=== PATIENT | female | born 1995 | race Caucasian/White ===

== ENCOUNTER → 2020-08-20 08:56 | Outpatient (BNVA) | payer OTHER, SELFPAY | PROVIDERS: Family Provider Nurse Practitioner Family; PCP Nurse Practitioner Family; Visit Provider Registered Nurse | DX: Z11.59 Encounter for screening for other viral diseases (principal) | CPT/HCPCS: 87635 ==

== ENCOUNTER → 2021-10-18 14:42 | Outpatient (BNVA) | payer OTHER, SELFPAY | PROVIDERS: Family Provider Nurse Practitioner Family; PCP Nurse Practitioner Family; Visit Provider Registered Nurse | DX: Z34.90 Encounter for supervision of normal pregnancy, unspecified, unspecified trimester (principal) | CPT/HCPCS: 81025; 84702 ==

== ENCOUNTER → 2021-10-21 08:06 | Outpatient (BNVA) | payer OTHER, SELFPAY | PROVIDERS: Family Provider Nurse Practitioner Family; PCP Nurse Practitioner Family; Visit Provider Registered Nurse | DX: N91.2 Amenorrhea, unspecified (principal); Z34.90 Encounter for supervision of normal pregnancy, unspecified, unspecified trimester | CPT/HCPCS: 81025; 84702 ==

== ENCOUNTER → 2021-11-08 16:08 | Outpatient (BNVA) | payer OTHER, SELFPAY | PROVIDERS: Family Provider Nurse Practitioner Family; PCP Registered Nurse; Visit Provider Registered Nurse | DX: N92.6 Irregular menstruation, unspecified (principal) | CPT/HCPCS: 84702 ==

== ENCOUNTER → 2021-11-11 08:47 | Outpatient (BNVA) | payer OTHER, SELFPAY | PROVIDERS: Family Provider Nurse Practitioner Family; PCP Registered Nurse; Visit Provider Registered Nurse | DX: Z34.90 Encounter for supervision of normal pregnancy, unspecified, unspecified trimester (principal) | CPT/HCPCS: 84702 ==

== ENCOUNTER → 2021-11-22 09:01 | Outpatient (BNVA) | payer OTHER, BC, SELFPAY | PROVIDERS: Family Provider Nurse Practitioner Family; PCP Registered Nurse; Visit Provider Registered Nurse | DX: Z11.52 Encounter for screening for COVID-19 (principal); J02.0 Streptococcal pharyngitis; R50.9 Fever, unspecified | CPT/HCPCS: 81025; 87635; 87880 ==

== ENCOUNTER → 2021-12-02 10:46 | Outpatient (BNVA) | payer OTHER, BC, SELFPAY | PROVIDERS: Family Provider Nurse Practitioner Family; PCP Registered Nurse; Visit Provider Obstetrics & Gynecology | DX: N92.6 Irregular menstruation, unspecified (principal) | CPT/HCPCS: 84702 ==

== ENCOUNTER → 2021-12-05 09:54 | Outpatient (BNVA) | payer OTHER, BC, SELFPAY | PROVIDERS: Family Provider Nurse Practitioner Family; PCP Registered Nurse; Visit Provider Obstetrics & Gynecology | DX: N92.6 Irregular menstruation, unspecified (principal) | CPT/HCPCS: 84702 ==

== ENCOUNTER → 2021-12-13 15:20 | Outpatient (BNVA) | payer OTHER, BC, SELFPAY | PROVIDERS: Family Provider Nurse Practitioner Family; PCP Registered Nurse; Visit Provider Obstetrics & Gynecology | DX: O20.0 Threatened abortion (principal) | CPT/HCPCS: 84702; 85025; 86850; 86900 ==

== ENCOUNTER → 2021-12-20 14:09 | Outpatient (BNVA) | payer OTHER, BC, SELFPAY | PROVIDERS: Family Provider Nurse Practitioner Family; PCP Registered Nurse; Visit Provider Obstetrics & Gynecology | DX: O03.9 Complete or unspecified spontaneous abortion without complication (principal) | CPT/HCPCS: 84702 ==

== ENCOUNTER → 2022-01-09 09:38 | Outpatient (BNVA) | payer OTHER, BC, SELFPAY | PROVIDERS: Family Provider Nurse Practitioner Family; PCP Registered Nurse; Visit Provider Obstetrics & Gynecology | DX: Z12.4 Encounter for screening for malignant neoplasm of cervix (principal); O02.0 Blighted ovum and nonhydatidiform mole; F32.A Depression, unspecified | CPT/HCPCS: 88175 ==

== ENCOUNTER → 2022-03-06 16:01 | Outpatient (BNVA) | payer OTHER, BC, SELFPAY | PROVIDERS: Family Provider Nurse Practitioner Family; PCP Registered Nurse; Visit Provider Registered Nurse | DX: N92.6 Irregular menstruation, unspecified (principal) | CPT/HCPCS: 84144; 84702 ==

== ENCOUNTER → 2022-03-09 10:02 | Outpatient (BNVA) | payer OTHER, BC, SELFPAY | PROVIDERS: Family Provider Nurse Practitioner Family; PCP Registered Nurse; Visit Provider Registered Nurse | DX: Z34.90 Encounter for supervision of normal pregnancy, unspecified, unspecified trimester (principal) | CPT/HCPCS: 84144; 84702 ==

== ENCOUNTER → 2022-03-15 15:26 | Outpatient (BNVA) | payer OTHER, BC, MEDICAID, SELFPAY | PROVIDERS: Family Provider Nurse Practitioner Family; PCP Registered Nurse; Visit Provider Obstetrics & Gynecology | DX: Z34.90 Encounter for supervision of normal pregnancy, unspecified, unspecified trimester (principal) | CPT/HCPCS: 84702 ==

== ENCOUNTER → 2022-04-21 09:14 | Outpatient (BNVA) | payer OTHER, BC, MEDICAID, SELFPAY | PROVIDERS: Family Provider Nurse Practitioner Family; PCP Registered Nurse; Visit Provider Obstetrics & Gynecology | DX: Z34.90 Encounter for supervision of normal pregnancy, unspecified, unspecified trimester (principal) | CPT/HCPCS: 80307; 84315; 84443; 85025; 86592; 86762; 86803; 86850; 86900; 87086; 87340; 87806 ==

== ENCOUNTER 2022-04-24 08:30 | Outpatient (CLI) | payer OTHER, BC, MEDICAID, SELFPAY ==
--- NOTE | 2022-04-24 08:34 | US_ITS ---
WS: [id number] EARLY OBSTETRICAL ULTRASOUND (<14 WEEKS). HISTORY: DATING COMPARISON: None available. Single intrauterine gestational sac is identified. Cardiac activity at 157 BPM. [place]-rump length adonay sures 4.9 cm which corresponds to a gestation of 11w5d. Normal-appearing yolk sac and amnion demonstr ated. No subchorionic hemorrhage. No free fluid. Neither ovary is identified. No adnexal masses. US/US OB <=14 wk fetus w transvag IMPRESSION: 1. Single intrauterine gestation of 11 weeks 5 days with an EDC of 11/08/2022. 2. Normal cardiac activity.
== END 2022-04-24 08:31 | disposition home or self-care (01) ==
LOC: RAD 08:31
PROVIDERS: PCP Registered Nurse; Visit Provider Obstetrics & Gynecology
DX: Z36.87 Encounter for antenatal screening for uncertain dates (principal)
CPT/HCPCS: 76801; 76817

== ENCOUNTER → 2022-05-05 15:05 | Outpatient (BNVA) | payer OTHER, BC, MEDICAID, SELFPAY | PROVIDERS: PCP Registered Nurse; Visit Provider Obstetrics & Gynecology | DX: Z34.90 Encounter for supervision of normal pregnancy, unspecified, unspecified trimester (principal) | CPT/HCPCS: 84315; 87491; 87591; 87661 ==

== ENCOUNTER → 2022-05-29 14:41 | Outpatient (BNVA) | payer OTHER, BC, MEDICAID, SELFPAY | PROVIDERS: PCP Registered Nurse; Visit Provider Obstetrics & Gynecology | DX: Z34.90 Encounter for supervision of normal pregnancy, unspecified, unspecified trimester (principal) | CPT/HCPCS: 82950; 84315 ==

== ENCOUNTER → 2022-06-01 08:08 | Outpatient (BNVA) | payer OTHER, BC, MEDICAID, SELFPAY | PROVIDERS: PCP Registered Nurse; Visit Provider Obstetrics & Gynecology | DX: Z34.90 Encounter for supervision of normal pregnancy, unspecified, unspecified trimester (principal) | CPT/HCPCS: 82951; 82952 ==

== ENCOUNTER → 2022-06-29 09:41 | Outpatient (BNVA) | payer OTHER, BC, MEDICAID, SELFPAY | PROVIDERS: PCP Registered Nurse; Visit Provider Obstetrics & Gynecology | DX: Z34.90 Encounter for supervision of normal pregnancy, unspecified, unspecified trimester (principal) | CPT/HCPCS: 84315; 87086 ==

== ENCOUNTER → 2022-08-21 09:23 | Outpatient (BNVA) | payer OTHER, BC, MEDICAID, SELFPAY | PROVIDERS: PCP Registered Nurse; Visit Provider Obstetrics & Gynecology | DX: Z34.90 Encounter for supervision of normal pregnancy, unspecified, unspecified trimester (principal) | CPT/HCPCS: 82951; 82952; 84315; 85025 ==

== ENCOUNTER → 2022-09-04 10:30 | Outpatient (BNVA) | payer OTHER, BC, MEDICAID, SELFPAY | PROVIDERS: PCP Registered Nurse; Visit Provider Obstetrics & Gynecology | DX: Z34.90 Encounter for supervision of normal pregnancy, unspecified, unspecified trimester (principal); Z3A.00 Weeks of gestation of pregnancy not specified | CPT/HCPCS: 84315; 87086 ==

== ENCOUNTER 2022-09-09 15:10 | Outpatient (CLI) | payer OTHER, BC, MEDICAID, SELFPAY ==
[2022-09-09 15:10] VITALS: BMI 50.1
[2022-09-09 15:30] VITALS: BP 142/82; PULSE 97
[2022-09-09 15:42] VITALS: TEMP 36.9
[2022-09-09 15:45] VITALS: BP 134/73; PULSE 88
[2022-09-09 16:00] VITALS: BP 128/73; PULSE 86
[2022-09-09 16:10] LABS: Actim Prom Negative
[2022-09-09 16:15] VITALS: BP 132/77; PULSE 88
[2022-09-09 16:49] VITALS: BP 132/77; PULSE 88; RESP 16
== END 2022-09-09 16:50 | disposition home or self-care (01) ==
LOC: OPOB 15:13 → OBGYN 15:13
PROVIDERS: PCP Registered Nurse; Visit Provider Obstetrics & Gynecology
DX: O26.899 Other specified pregnancy related conditions, unspecified trimester (principal); Z3A.00 Weeks of gestation of pregnancy not specified; N89.8 Other specified noninflammatory disorders of vagina
CPT/HCPCS: 59025; 83986; 84112; 99211

== ENCOUNTER 2022-09-29 10:17 | Outpatient (CLI) | payer OTHER, BC, MEDICAID, SELFPAY ==
[2022-09-29 10:32] VITALS: BP 122/73; PULSE 90
[2022-09-29 10:42] VITALS: BMI 50.8
[2022-09-29 10:47] VITALS: TEMP 36.6
[2022-09-29 10:55] VITALS: BP 125/89; PULSE 86
[2022-09-29 11:10] VITALS: BP 129/90; PULSE 87
== END 2022-09-29 11:20 | disposition home or self-care (01) ==
LOC: OPOB 10:25 → OBGYN 10:26
PROVIDERS: PCP Registered Nurse; Visit Provider Obstetrics & Gynecology
DX: O36.8190 Decreased fetal movements, unspecified trimester, not applicable or unspecified (principal); Z3A.00 Weeks of gestation of pregnancy not specified
CPT/HCPCS: 59025; 99211

== ENCOUNTER → 2022-10-02 08:15 | Outpatient (BNVA) | payer OTHER, BC, MEDICAID, SELFPAY | PROVIDERS: PCP Registered Nurse; Visit Provider Obstetrics & Gynecology | DX: Z34.90 Encounter for supervision of normal pregnancy, unspecified, unspecified trimester (principal); Z3A.00 Weeks of gestation of pregnancy not specified | CPT/HCPCS: 84315; 85025; 87086 ==

== ENCOUNTER 2022-10-08 19:20 | Outpatient (CLI) | payer OTHER, BC, MEDICAID, SELFPAY ==
[2022-10-08] VITALS (19 sets, daily range): BP systolic 136–172; BP diastolic 84–98; PULSE 70–83; RESP 16; TEMP 36.1–36.3; BMI 51.5
[2022-10-08 20:19] LABS: Glucose Point of Care 80 mg/dL (70-110)
[2022-10-08 21:11] LABS: Basophils % 0.3 %; Eosinophils # 0.6 10^3/uL (0.0-0.8); Eosinophils % 4.3 %; Hematocrit 33.6 % (37.0-47.0); Hemoglobin 10.8 g/dL (11.5-15.3); Lymphocytes # 2.4 10^3/uL (0.8-4.8); Lymphocytes % 16.2 %; Mean Corpuscular HGB Conc 32.1 g/dL (30.0-36.0); Mean Corpuscular Hemoglobin 27.2 pg (28.0-34.0); Mean Corpuscular Volume 84.6 fl (81-99); Mean Platelet Volume 11.8 fL (7.4-10.4); Monocytes # 1.2 10^3/uL (0.2-0.9); Neutrophils # 10.44 10^3/uL (1.8-7.7); Neutrophils % 70.8 %; Nucleated Red Blood Cells % 0 %; Platelet Count 293 10^3/cmm (130-400); Red Blood Count 3.97 10^6/uL (4.1-5.3); Red Cell Distribution Width 14.6 % (12.1-15.1); White Blood Count 14.8 10^3/uL (4.0-10.0)
[2022-10-08 21:29] LABS: Alanine Aminotransferase 7 U/L (0-33); Albumin Level 2.9 g/dL (3.5-5.2); Alkaline Phosphatase 168 U/L (35-105); Anion Gap 13.1 (5-19); Aspartate Amino Transferase 7 U/L (0-32); Blood Urea Nitrogen 9 mg/dL (6-20); Carbon Dioxide 24 mmol/L (22-29); Chloride 103 mmol/L (98-107); Globulin 3.3 g/dL (1.3-4.6); Glomerular Filtration Rate 119.9 mL/min (90-130); Glucose 85 mg/dL (65-115); Osmolality Calculated 280 mOsm/kg (285-295); Potassium 4.1 mmol/L (3.5-5.1); Sodium 136 mmol/L (136-145); Total Bilirubin 0.2 mg/dL (0.15-1.2); Total Protein 6.2 g/dL (6.6-8.7); Uric Acid 5.1 mg/dL (2.4-5.7)
[2022-10-08 21:31] LABS: Urine Creatinine 260 mg/dL (28-217)
[2022-10-08 21:32] LABS: Add Urine Microscopic? YES; Bilirubin Urine Neg (Negative); Blood Urine Neg (Negative); Glucose Urine UA Norm (Normal); Ketones Urine Negative (Negative); Leukocyte Esterase Urine Negative (Negative); Nitrate Urine Negative (Negative); Protein Urine 1+ (Negative); Urine Appearance Clear (CLEAR); Urine Color Yellow (Yellow); Urobilinogen Urine Neg (Negative); pH Urine 6 (5-7)
[2022-10-08 21:34] LABS: Mucus Urine 3+ /hpf
[2022-10-08 21:35] LABS: Add Urine Culture? Yes; Bacteria Urine 1+ /hpf
[2022-10-08 21:54] LABS: UPRO/UCREAT Ratio 0.33 mg/mg CR; Urine Protein Random 87 mg/dL
--- NOTE | 2022-10-08 23:14 | PM.OBTRLD ---
OB L&D Triage Visit Information: Date of evaluation: 10/08/22 Comments/Additional reason(s) for visit: October 08, 2022, 2305 L&D? NOTE 27 y.o. SA1 EDC? November 12, 2022 35 w 0 d Presents to L&D c/o having elevated BPs at home ? Patient has been self-monitoring BPs due to swelling during this Had headache yesterday but none today No abdominal pain, blurry vision + active movements Exam:?comfortable ?BPs?? 153 / 92, ?153 / 88,? 166 / 90,? 148 / 97,? 137/88,? 136 / 84 ?Weight?? 264? lbs ?Abd:? soft, nontender ?Ext:? trace edema External monitor:??? no UCs ? heart tracing good variability,? + accelerations Hgb?10.8 Platelets? 293? K AST, ALT? normal Alk Phos? 168 Urine protein? 1+ A/P: 35 w 0 d Fetus reassuring Mildly elevated BPs Plan start 24-h urine collection for protein Plan discharge home Call/return if headache, blurry vision, worsening swelling Patient already has appointment to return tomorrow to OB office Evaluation: monitor accelerations: Present 15x15 Laboratory results: Laboratory Tests 10/08/22 10/08/22 10/08/22 20:15 21:00 21:00 WBC 14.8 H RBC 3.97 L Hgb 10.8 L Hct 33.6 L MCV 84.6 MCH 27.2 L MCHC 32.1 RDW 14.6 Plt Count 293 MPV 11.8 H Neut % (Auto) 70.8 Lymph % (Auto) 16.2 [place] % (Auto) 8.0 Eos % (Auto) 4.3 Baso % (Auto) 0.3 Neut # (Auto) 10.44 H Lymph # (Auto) 2.4 [place] # (Auto) 1.2 H Eos # (Auto) 0.6 Baso # (Auto) 0.0 Nucleated RBC % (a uto) 0 Nucleated RBCs # 0.0 Sodium Potassium Chloride Carbon Dioxide Anion Gap BUN Creatinine GFR Calculation Glucose POC Glucose 80 Calculated Osmolal ity Uric Acid Calcium Total Bilirubin AST ALT Alkaline Phosphata se Total Protein Albumin Globulin Urine Color Urine Appearance Urine pH Ur Specific Gravit y Urine Protein Urine Glucose (UA) Urine Ketones Urine Blood Urine Nitrate Urine Bilirubin Urine Urobilinogen Ur Leukocyte Eli ase Urine RBC Urine WBC Ur Squamous Epith Cells Amorphous Sediment Urine Bacteria Urine Mucus U Random Total Pro tein 87 Urine Creatinine 260 H Protein/Creatinin Ratio 0.33 10/08/22 10/08/22 21:00 21:00 WBC RBC Hgb Hct MCV MCH MCHC RDW Plt Count MPV Neut % (Auto) Lymph % (Auto) [place] % (Auto) Eos % (Auto) Baso % (Auto) Neut # (Auto) Lymph # (Auto) [place] # (Auto) Eos # (Auto) Baso # (Auto) Nucleated RBC % (a uto) Nucleated RBCs # Sodium 136 Potassium 4.1 Chloride 103 Carbon Dioxide 24 Anion Gap 13.1 BUN 9 Creatinine 0.6 GFR Calculation 119.9 Glucose 85 POC Glucose Calculated Osmolal ity 280 L Uric Acid 5.1 Calcium 9.0 Total Bilirubin 0.2 AST 7 ALT 7 Alkaline Phosphata se 168 H Total Protein 6.2 L Albumin 2.9 L Globulin 3.3 Urine Color Yellow Urine Appearance Clear Urine pH 6 Ur Specific Gravit y 1.020 Urine Protein 1+ H Urine Glucose (UA) Norm Urine Ketones Negative Urine Blood Neg Urine Nitrate Negative Urine Bilirubin Neg Urine Urobilinogen Neg Ur Leukocyte Eli ase Negative Urine RBC None Urine WBC 5-10 H Ur Squamous Epith Cells 5-10 H Amorphous Sediment Not Reportable Urine Bacteria 1+ H Urine Mucus 3+ U Random Total Pro tein Urine Creatinine Protein/Creatinin Ratio Vital signs: Vital Signs - 24 hr 10/08/22 19:27 10/08/22 19:32 10/08/22 19:44 Temperature 97.3 F L Pulse Rate 80 73 Blood Pressure 172/94 153/97 10/08/22 20:01 10/08/22 20:15 10/08/22 20:31 Temperature Pulse Rate 70 73 72 Blood Pressure 145/91 146/92 136/84 10/08/22 20:45 10/08/22 21:17 10/08/22 21:30 Temperature Pulse Rate 70 75 81 Blood Pressure 139/84 137/88 143/89 10/08/22 21:45 10/08/22 22:00 10/08/22 22:15 Temperature Pulse Rate 74 83 80 Blood Pressure 150/92 148/98 148/97 10/08/22 22:31 10/08/22 22:45 10/08/22 23:00 Temperature Pulse Rate 77 77 75 Blood Pressure 166/90 153/88 153/92 Care WANG Calculator Estimated Delivery Date Method Current WG Current Estimate 11/12/22 LMP (Certain) 35w 0d Expected Delivery Route/Plan vaginal delivery Final Diagnosis Final Diagnosis (1) Mild hypertension: Status: Acute Code(s): I10 - Essential (primary) hypertension Coding Level of Care Code Acute Historic Sites Registrar for Chg Fwd Diagnoses Mild hypertension I10
== END 2022-10-08 23:30 | disposition home or self-care (01) ==
LOC: OPOB 19:21 → OBGYN 19:21
PROVIDERS: PCP Registered Nurse; Visit Provider Obstetrics & Gynecology
DX: O16.9 Unspecified maternal hypertension, unspecified trimester (principal); Z3A.00 Weeks of gestation of pregnancy not specified; R60.9 Edema, unspecified
CPT/HCPCS: 12345; 36415; 36416; 59025; 80053; 81001; 82570; 82962; 84156; 84550; 85025; 87086; 99211

== ENCOUNTER 2022-10-09 14:20 | Outpatient (CLI) | payer OTHER, BC, MEDICAID, SELFPAY ==
[2022-10-09 14:30] VITALS: BMI 51.0
[2022-10-09] MEDS: dexamethasone 10 mg/mL INJ 6 MG IM (14:41)
== END 2022-10-09 14:45 | disposition home or self-care (01) ==
LOC: OPOB 14:27
PROVIDERS: PCP Registered Nurse; Visit Provider Obstetrics & Gynecology
DX: O60.00 Preterm labor without delivery, unspecified trimester (principal); Z3A.00 Weeks of gestation of pregnancy not specified
CPT/HCPCS: 87081; 96372; J1100

== ENCOUNTER 2022-10-10 11:55 | Inpatient (IN) | payer OTHER, BC, MEDICAID, SELFPAY ==
[2022-10-10] VITALS (79 sets, daily range): BP systolic 132–179; BP diastolic 77–107; PULSE 71–104; RESP 16; TEMP 36.3–36.7; O2SAT 91–100; BMI 51.1
[2022-10-10 08:15] LABS: Total Volume, Urine 1100 mL
[2022-10-10] MEDS: dexamethasone 10 mg/mL INJ 6 MG IM ×2 (08:33→20:08)
[2022-10-10 08:57] LABS: Urine Total Protein 58.3 mg/dL (0-150); Urine Total Protein 24 Hour 641.3 mg/24hr (0-150)
[2022-10-10 11:52] LABS: Basophils % 0.2 %; Eosinophils # 0.1 10^3/uL (0.0-0.8); Eosinophils % 0.5 %; Hematocrit 38.2 % (37.0-47.0); Lymphocytes # 1.9 10^3/uL (0.8-4.8); Lymphocytes % 10.8 %; Mean Corpuscular HGB Conc 31.4 g/dL (30.0-36.0); Mean Corpuscular Hemoglobin 26.8 pg (28.0-34.0); Mean Corpuscular Volume 85.5 fl (81-99); Mean Platelet Volume 11.8 fL (7.4-10.4); Monocytes # 0.6 10^3/uL (0.2-0.9); Monocytes % 3.5 %; Neutrophils # 14.67 10^3/uL (1.8-7.7); Neutrophils % 84.3 %; Nucleated Red Blood Cells % 0 %; Platelet Count 322 10^3/cmm (130-400); Red Blood Count 4.47 10^6/uL (4.1-5.3); White Blood Count 17.4 10^3/uL (4.0-10.0)
--- NOTE | 2022-10-10 11:53 | P.HP_ITS ---
Providers/Chief Complaint Admitting Physician: Wyatt John MD Primary LANDSCAPE MAINTENANCE INTERNSHIP: Ronit Hays MD Primary Care Provider: DYLAN Licea Chief Complaint: Steroid Injection HPI LANDSCAPE MAINTENANCE INTERNS[employer]IP History of Present Illness October 10, 2022,? 1105 OB ADMIT NOTE 27 y.o. SA1 EDC? November 12, 2022 35 w 2 d Presents to L&D c/o persistent headache x two days No pain, bleeding, loss of fluid + active movements Has been evaluated here previously for elevated BPs 24-h urine done yesterday showed 24-h protein of 641 mg Exam:?comfortable ?BPs?? 156 / 97.? 144 / 105,? 144 / 107,? 149 / 101 ? Weight?? 262? lbs ?Abd:? soft, nontender ?Cx:? (checked in office yesterday)? long / closed ?Ext:? trace edema External monitor:??? no UCs ? heart tracing good variability,? + accelerations A/P: 35 w 2 d Fetus reassuring Preeclampsia with severe features Patient with persistent headache, not improved with Tylenol BPs all elevated, with diastolics above 100 Patient with preeclamptic criteria for delivery Discussed with patient, including risks of labor induction With unfavorable cervix, induction may carries increased risk of In addition, at 35 w 2 d, risk of prematurity and transfer to facility is increased Discussed with nursing assembly and packing supervisor and vp of customer experience strategy, ok to induce here at [facility] Plan start MgSO4, Procardia Plan cytotec 25 ug intravaginal Unknown GBS Plan start antibiotics when in active labor Present Details : 3 Para: 1 Medications/Allergies Home Medications Medication Instructions Recorded Confirmed Last Taken Type cetirizine 10 mg capsule (Zyrtec) 10 mg PO DAILY PRN Congestion 11/22/21 10/09/22 10/08/22 10:00 History fluoxetine 20 mg capsule (Prozac) 20 mg PO DAILY #90 caps 02/20/22 10/09/22 10/08/22 10:00 Rx docosahexaenoic acid 200 mg 200 mg PO DAILY 05/05/22 10/09/22 10/08/22 10:00 History capsule ( DHA) buspirone 10 mg tablet See Rx Instructions .Route 07/27/22 10/09/22 10/08/22 10:00 Rx .COMPLEX #180 tabs blood-glucose meter (Blood Glucose #1 ea 08/23/22 10/09/22 Unknown Rx Monitoring kit) Allergies Allergy/AdvReac Type Severity Reaction Status Date / Time No Known Allergies Allergy Verified 10/09/22 13:18 PFSH LANDSCAPE MAINTENANCE [employer]NS[employer] PFSH: Medical History Generalized anxiety disorder Diagnosed in 2020 and has been on medication managed by her primary care provider. Does not have a therapist or a psychiatrist. No pertinent past medical history Denies diabetes, asthma, hypertension, seizures, DVT/PE PCP: DYLAN Licea Surgical History Hx of tonsillectomy (~1999) Family History Family/Other Adopted Patient was adopted and does not know her biological family history History History History 3 Term 1 0 Miscarriages/Ectopic 1 Living Children 1 Care WANG Calculator Estimated Delivery Date Method Current WG Current Estimate 11/12/22 LMP (Certain) 35w 2d Expected Delivery Route/Plan vaginal delivery Vitals/I&O/Wt Last Vital Signs Temp 97.5 F L 10/10/22 08:15 Pulse 86 10/10/22 11:15 Resp 16 10/10/22 08:00 BP 156/97 10/10/22 11:15 Pulse Ox 100 10/10/22 09:16 O2 Del Method 10/10/22 08:00 Weight last 48 hrs Weight 262 lb Data 10/10/22 11:40 10/10/22 11:40 Attestations Medical Necessity Statement*: patient at 35 w 2 d with preeclampsia with severe features Coding Level of Care Code Acute Biology Instructor for Emilg Jimmy
[2022-10-10 12:11] LABS: Blood Urea Nitrogen 5 mg/dL (6-20); Calcium 8.9 mg/dL (8.5-10.5); Carbon Dioxide 23 mmol/L (22-29); Chloride 102 mmol/L (98-107); Glucose 87 mg/dL (65-115); Osmolality Calculated 277 mOsm/kg (285-295); Sodium 135 mmol/L (136-145)
[2022-10-10 12:12] LABS: Anion Gap 14.2 (5-19); Potassium 4.2 mmol/L (3.5-5.1)
[2022-10-10] MEDS: dextrose 5%-lactated ringers 1,000 ML 75 ML IV (12:26)
[2022-10-10] MEDS: magnesium sulfate premix 4 GM/100 ML PREMIX IV (12:28)
[2022-10-10] MEDS: magnesium sulfate premix 20 GM/500 ML BAG IV ×2 (12:48→22:40)
[2022-10-10] MEDS: miSOPROStol 100 mcg tablet 25 MCG VAGINAL ×3 (13:00→23:29)
[2022-10-10 18:01] LABS: Magnesium Level (OB Only) 4.6 mg/dL (5.0-7.5)
[2022-10-10] MEDS: acetaminophen 325 mg Tablet 650 MG PO (19:38)
[2022-10-10] MEDS: NIFEdipine 10 mg Capsule PO (22:43)
--- NOTE | 2022-10-10 23:15 | PM.OBGYPN ---
GERIATRIC NURSE PRACTITIONER Subjective Subjective: Interval history: October 10, 2022, 2254 Feeling mild UCs BPs? 145 / 82,? 147 / 85,? 174 / 99, ?144 / 90 Urine output:?? decreased past two hours External monitor:? irregular UCs ? heart tracing good variability Cx:? 2 cm / 75% / -3 / posterior A/P: 35 w 3 d Preeclampsia with severe features Induction of labor Plan give cytotec 25 ug intravaginal #3 Plan re-examine in four hours Give Procardia 10 mg PO Q4 h for bp control Continue MgSO4 2 gms / h Continue to monitor urine output Plan decrease total IV fluids to 100 cc / hr Labor: Station: -3 Amniotic Membrane Status: Intact Monitor Mode: External Contraction Pattern: Irregular Status: Category I Vitals/I&O/Wt Last Vital Signs Temp 97.3 F L 10/10/22 18:12 Pulse 104 H 10/10/22 23:12 Resp 16 10/10/22 15:04 BP 155/85 10/10/22 23:12 Pulse Ox 97 10/10/22 13:00 O2 Del Method 10/10/22 11:46 10/10/22 10/10/22 10/11/22 14:59 22:59 06:59 Intake Total 100 / 100 493.333 / 593.333 Output Total 150 / 150 555 / 705 Balance -50 / -50 -61.667 / -111.667 Weight last 48 hrs Weight 262 lb Physical Exam Urinary Catheter Management: Conway: Cath Placed During This Visit: yes Reason for Continuing Indwelling Catheter: Accurate Measurement of Urinary Output in Critically Ill Patients Urinary Catheter Date of Insertion: 10/10/22 Urinary Catheter Time of Insertion: 12:35 Data 10/10/22 11:40 10/10/22 11:40 Attestations Medical Necessity Statement*: 35 w 3 d; preeclampsia with severe features; induction of labor Coding Level of Care Code Acute Bilingual Counter Sales Retail for Gilberto Marquez
[2022-10-11] VITALS (97 sets, daily range): BP systolic 118–186; BP diastolic 67–107; PULSE 72–117; RESP 15–16; TEMP 36.3–36.7; O2SAT 83–100
[2022-10-11] MEDS: acetaminophen 325 mg Tablet 650 MG PO (02:06)
[2022-10-11] MEDS: dextrose 5%-lactated ringers 1,000 ML 50 ML IV (02:36)
[2022-10-11] MEDS: NIFEdipine 10 mg Capsule PO (02:36)
--- NOTE | 2022-10-11 03:46 | PM.OBGYPN ---
HARVEST WORKER FIELD CROP Subjective Subjective: Interval history: October 11, 2022, 0325 Fetus reassuring Feels mild UCs Received three doses of cytotec 25 ug intravaginal Urine output better Cx:?? 2 cm / 90 / -2 to -3 / mid-position Plan start Pitocin Plan epidural Plan AROM if possible Labor: Station: -3 Amniotic Membrane Status: Intact Monitor Mode: External Contraction Pattern: Irregular Status: Category I Vitals/I&O/Wt Last Vital Signs Temp 97.3 F L 10/11/22 03:30 Pulse 88 10/11/22 03:41 Resp 16 10/10/22 15:04 BP 145/80 10/11/22 03:41 Pulse Ox 97 10/10/22 13:00 O2 Del Method 10/10/22 11:46 10/10/22 10/10/22 10/11/22 14:59 22:59 06:59 Intake Total 100 / 100 561.333 / 977.838 5623 / 2661.333 Output Total 150 / 150 721 / 871 335 / 1206 Balance -50 / -50 -159.667 / -993.795 7763 / 1455.333 Weight last 48 hrs Weight 262 lb Physical Exam Urinary Catheter Management: Conway: Cath Placed During This Visit: yes Reason for Continuing Indwelling Catheter: Accurate Measurement of Urinary Output in Critically Ill Patients Urinary Catheter Date of Insertion: 10/10/22 Urinary Catheter Time of Insertion: 12:35 Data 10/10/22 11:40 10/10/22 11:40 Attestations Medical Necessity Statement*: patient undergoing labor induction for preeclampsia with severe features Coding Level of Care Code Acute Environmental Remediation Engineer for Emil Jimmy
[2022-10-11] MEDS: lactated ringers 500 ML IV (04:01)
[2022-10-11] MEDS: oxytocin 30 UNIT/500 ML BAG IV (04:30)
--- NOTE | 2022-10-11 04:40 | ANES.PREANE2 ---
Pre-Anesthetic Assessment Height/Weight: Height 1.52 m Weight 118.841 kg Temp Pulse Resp BP Pulse Ox O2 Del Method 97.3 F L 103 H 16 140/80 99 10/11/22 03:30 10/11/22 05:02 10/10/22 15:04 10/11/22 05:01 10/11/22 05:02 10/10/22 11:46 Preop Diagnosis: IUP labor epidural Familial anesthetic complications: none Was Beta Glenda taken within 24 hours: N/A Was Clonidine taken within 24 hours: N/A Last Intake: 11:30 (yesterday) Social No alcohol and No tobacco Exam alert and oriented x 3 Airway Submandibular: within normal limits Cervical ROM: within normal limits Mallampati: Class II Dentition: full History/ROS No significant history except as noted Pulmonary None reported CV/HEM Hypertension (being induced for pre-e with extreme symptoms- on procardia during induction ) None reported Hepatic None reported GI Gastroesophageal Reflux Disease (gestational only) Metabolic Diabetes Mellitus (gestational only) and Morbid Obesity [facility] None reported Neuropsych None reported Anesthetic Plan ASA status: 3 Anesthesia: Anesthesia Evaluation and Regional (specify below) (epidural) Medications/Allergies Home Medications Medication Instructions Recorded Confirmed Last Taken Type cetirizine 10 mg capsule (Zyrtec) 10 mg PO DAILY PRN Congestion 11/22/21 10/09/22 10/08/22 10:00 History fluoxetine 20 mg capsule (Prozac) 20 mg PO DAILY #90 caps 02/20/22 10/09/22 10/08/22 10:00 Rx docosahexaenoic acid 200 mg 200 mg PO DAILY 05/05/22 10/09/22 10/08/22 10:00 History capsule ( DHA) buspirone 10 mg tablet See Rx Instructions .Route 07/27/22 10/09/22 10/08/22 10:00 Rx .COMPLEX #180 tabs blood-glucose meter (Blood Glucose #1 ea 08/23/22 10/09/22 Unknown Rx Monitoring kit) Allergies Allergy/AdvReac Type Severity Reaction Status Date / Time No Known Allergies Allergy Verified 10/09/22 13:18 Current Medications Generic Name Dose Route Start Last Admin Trade Name Freq PRN Reason Stop Dose Admin Acetaminophen 650 mg 10/10/22 11:13 10/11/22 02:06 Acetaminophen 325 Mg Tablet PO 650 mg Q6H PRN Administration Mild pain or temp > 100.4 Dexamethasone 6 mg 10/10/22 08:00 10/10/22 20:08 Dexamethasone 10 Mg/Ml Inj IM 6 mg Q12H DANNY Administration Dextrose/Lactated Ringer's 1,000 mls @ 125 mls/hr 10/10/22 11:15 10/11/22 02:36 Dextrose 5%-Lactated Ringers IV 75 mls/hr .Q8H DANNY Administration Magnesium Sulfate 20 gm in 500 mls @ 50 mls/hr 10/10/22 11:30 10/10/22 22:40 Magnesium Sulfate Premix IV 50 mls/hr .Q10H DANNY Administration Dextrose/Lactated Ringer's 1,000 mls @ 125 mls/hr 10/10/22 11:30 10/11/22 01:54 Dextrose 5%-Lactated Ringers IV Not Given .Q8H DANNY Lactated Ringer's 500 mls @ 500 mls/hr 10/11/22 03:32 10/11/22 04:01 Lactated Ringers IV 500 mls/hr .Q1H PRN Administration see label comments Nifedipine 10 mg 10/11/22 03:00 10/11/22 02:36 Nifedipine 10 Mg Capsule PO 10 mg TID DANNY Administration PFSH Anesthesia Medical History Generalized anxiety disorder Diagnosed in 2020 and has been on medication managed by her primary care provider. Does not have a therapist or a psychiatrist. No pertinent past medical history Denies diabetes, asthma, hypertension, seizures, DVT/PE PCP: DYLAN Licea Surgical History Hx of tonsillectomy (~1999) Family History Family/Other Adopted Patient was adopted and does not know her biological family history Female Reproductive History : 3 Data Anesthesia 10/10/22 11:40 10/10/22 11:40 Short CBC 10/10/22 Range/Units 11:40 WBC 17.4 H (4.0-10.0) 10^3/uL Hgb 12.0 (11.5-15.3) g/dL Hct 38.2 (37.0-47.0) % MCV 85.5 (81-99) fl Plt Count 322 (130-400) 10^3/cmm Neut % (Auto) 84.3 % Neut # (Auto) 14.67 H (1.8-7.7) 10^3/uL BMP 10/10/22 11:40 Sodium 135 L Potassium 4.2 Chloride 102 Carbon Dioxide 23 BUN 5 L Creatinine 0.5 Glucose 87 Calcium 8.9 Cardiac Studies: No Data to Display
--- NOTE | 2022-10-11 05:05 | P.ANES_ITS ---
Anesthesia Procedures Procedure/Date: 10/11/22 Epidural: Time Out Performed: Yes Consents Signed: Procedure Consent Consent: from patient, risks and benefits reviewed and patient agrees to proceed Lumbar Level: L3-L4 Epidural position: sitting Epidural procedure: sterile prep of area, 1% lidocaine to numb the area, 18 g needle, negative for p aresthesia passed, test dose given, 1.5% xylocaine 1:200k epi, placed PCEA, no systemic response, sterile dressing applied, L.U.D. no apparent complications and 0.2% Ropiavacaine @ mls/hr (11) Additional Comments: LETI at 7.5. taped at 14 at skin. negative blood/CSF return upon aspiration
[2022-10-11] MEDS: citric acid-sodium citrate 30 mL UDC PO (06:59)
[2022-10-11] MEDS: famotidine 20 mg/2 mL INJ IVP (06:59)
[2022-10-11] MEDS: metoclopramide 5 mg/mL SDV 2 mL 10 MG IV (06:59)
[2022-10-11] MEDS: ceFAZolin 2,000 MG in sodium chloride 0.9% (plus) 50 ML 100 MG IV (07:00)
[2022-10-11] MEDS: magnesium sulfate premix 20 GM/500 ML BAG IV (09:21)
--- NOTE | 2022-10-11 09:54 | ANE.PACU2 ---
Inpatient post-anesthesia follow up: Airway intact: Yes Vital signs: Temperature 97.3 F Pulse Rate 101 Respiratory Rate 16 Blood Pressure 118/84 Pulse Oximetry 99 Oxygen Delivery Me thod Oxymask Oxygen Flow Rate Fraction of Inspir ed Oxygen Hydration adequate: Yes Nausea and vomiting: No Pain level: 3 Mental status: Baseline
[2022-10-11] MEDS: lactated ringers 1,000 ML 125 ML IV (12:48)
--- NOTE | 2022-10-11 16:27 | PM.OBGYPN ---
TURBO ELECTRIC OPERATOR Subjective Subjective: Interval history: October 11, 2022, 0610 heart tracing now with deep variable decelerations and late decelerations Cx:? 2 cm Patient with severe preeclampsia ? Nonreassuring strip ? And remote from vaginal delivery Recommend proceed to for delivery Patient also wants permanent sterilization Does not want reversible control Understands irreversibility of procedure Plan , bilateral partial salpingectomy Procedures and risks explained, including risks of infection, bleeding, injury to internal organs, anesthesia, blood transfusions Patient understands and wants to proceed Labor: Station: -3 Amniotic Membrane Status: Intact Monitor Mode: External Contraction Pattern: Occasional Status: Category I Vitals/I&O/Wt Last Vital Signs Temp 97.3 F L 10/11/22 03:30 Pulse 88 10/11/22 15:28 Resp 15 10/11/22 09:30 BP 142/86 10/11/22 15:28 Pulse Ox 98 10/11/22 09:30 O2 Del Method 10/11/22 09:30 10/11/22 10/11/22 10/11/22 06:59 14:59 22:59 Intake Total 2613.183 / 3274.516 633.333 / 633.333 Output Total 514 / 1385 50 / 50 Balance 2099.183 / 1889.516 583.333 / 583.333 Weight last 48 hrs Weight 262 lb Physical Exam Urinary Catheter Management: [place]: Cath Placed During This Visit: yes Reason for Continuing Indwelling Catheter: Accurate Measurement of Urinary Output in Critically Ill Patients Urinary Catheter Date of Insertion: 10/10/22 Urinary Catheter Time of Insertion: 12:35 Data 10/10/22 11:40 10/10/22 11:40 Attestations Medical Necessity Statement*: patient undergoing labor induction for severe preeclampsia Coding Level of Care Code Acute Assistant Professor Of Archaeology for Gilberto Marquez
--- NOTE | 2022-10-11 16:29 | P.PN_ITS ---
DIRECTOR OF SUSTAINABILITY PROGRAMS Subjective Subjective: Interval history: October 11, 2022, 0850 BRIEF OP NOTE Procedures:? primary low-transverse ?Bilateral partial salpingectomy Surgeon:?Dr. John Anesthesia:? epidural EBL:?750 cc Complications:? none Labor: Station: -3 Amniotic Membrane Status: Intact Monitor Mode: External Contraction Pattern: Occasional Status: Category I Vitals/I&O/Wt Last Vital Signs Temp 97.3 F L 10/11/22 03:30 Pulse 88 10/11/22 15:28 Resp 15 10/11/22 09:30 BP 142/86 10/11/22 15:28 Pulse Ox 98 10/11/22 09:30 O2 Del Method 10/11/22 09:30 10/11/22 10/11/22 10/11/22 06:59 14:59 22:59 Intake Total 2613.183 / 3274.516 633.333 / 633.333 Output Total 514 / 1385 50 / 50 Balance 2099.183 / 1889.516 583.333 / 583.333 Weight last 48 hrs Weight 262 lb Physical Exam Urinary Catheter Management: Conway: Cath Placed During This Visit: yes Reason for Continuing Indwelling Catheter: Accurate Measurement of Urinary Output in Critically Ill Patients Urinary Catheter Date of Insertion: 10/10/22 Urinary Catheter Time of Insertion: 12:35 Data 10/10/22 11:40 10/10/22 11:40 Attestations Medical Necessity Statement*: patient for delivery Coding Level of Care Code Acute Extender for Chg Jimmy
[2022-10-11] MEDS: ketorolac 30 mg/mL INJ IVP (18:08)
[2022-10-11] MEDS: lactated ringers 1,000 ML 100 ML IV (22:04)
[2022-10-11 22:12] LABS: Hematocrit 28.8 % (37.0-47.0); Hemoglobin 9.1 g/dL (11.5-15.3); Mean Corpuscular HGB Conc 31.6 g/dL (30.0-36.0); Mean Corpuscular Hemoglobin 26.8 pg (28.0-34.0); Mean Corpuscular Volume 84.7 fl (81-99); Mean Platelet Volume 11.4 fL (7.4-10.4); Platelet Count 280 10^3/cmm (130-400); Red Cell Distribution Width 15.1 % (12.1-15.1); White Blood Count 18.3 10^3/uL (4.0-10.0)
[2022-10-12] VITALS (13 sets, daily range): BP systolic 122–160; BP diastolic 75–106; PULSE 70–82; RESP 16–18; TEMP 36.1–36.7; O2SAT 98–99
[2022-10-12] MEDS: ketorolac 30 mg/mL INJ IVP (00:47)
[2022-10-12] MEDS: HYDROcodone-acetaminophen 5-325 mg Tablet PO ×5 (00:48→21:13)
[2022-10-12] MEDS: magnesium sulfate premix 20 GM/500 ML BAG IV (04:26)
[2022-10-12] MEDS: ferrous sulfate EC 325 mg Tablet PO ×2 (07:53→17:50)
[2022-10-12] MEDS: prenatal vitamin Capsule 1 CAP PO (07:53)
[2022-10-12] MEDS: ibuprofen 800 mg tablet PO ×3 (09:21→21:09)
[2022-10-12] MEDS: NIFEdipine 10 mg Capsule PO ×3 (09:21→21:09)
[2022-10-12] MEDS: docusate sodium 100 mg Capsule PO ×2 (12:33→17:50)
[2022-10-12] MEDS: simethicone 80 mg Chew PO ×2 (15:05→21:13)
--- NOTE | 2022-10-12 15:44 | PM.PN ---
Vitals/I&O/Wt Last Vital Signs Temp 98.0 F 10/12/22 10:43 Pulse 78 10/12/22 15:06 Resp 18 10/12/22 15:06 BP 149/99 10/12/22 15:06 Pulse Ox 98 10/12/22 15:06 O2 Del Method 10/12/22 15:06 10/12/22 10/12/22 10/12/22 06:59 14:59 22:59 Intake Total 460.417 / 2093.750 936.667 / 936.667 Output Total 1200 / 2720 1949 / 1949 Balance -739.583 / -626.250 -1013.333 / -1013.333 Physical Exam Narrative: The patient is POD#1 after a primary for intolerance to labor and preeclampsia with severe features. She has just had her magnesium discontinued. She states that she is doing ok. Pain is well controlled. Baby is doing well. Resp: COMMON NORMALS: normal respiratory effort EFFORT & INSPECTION: Yes able to speak in complete sentences GI: COMMON NORMALS: Soft to palpation and non-tender PALPATION: Yes Soft to palpation Extremity: COMMON NORMALS: no calf tenderness Psych: COMMON NORMALS: mental status grossly normal, Normal thought process present, cooperative, normal affect and speech normal SPEECH: Yes normal speech THOUGHT PROCESS: Normal thought process present Urinary Catheter Management: Conway: Cath Placed During This Visit: yes, but has since been removed by the nurse Reason for Continuing Indwelling Catheter: Decision to DC Catheter Urinary Catheter Date of Insertion: 10/10/22 Urinary Catheter Time of Insertion: 12:35 Date Urinary Catheter Removed: 10/12/22 Time Urinary Catheter Discontinued: 08:00 Data 10/11/22 21:55 10/10/22 11:40 Attestations Medical Necessity Statement*: The patient had a and was on magnesium sulfate for 24 hours for preeclampsia Coding Level of Care Code Acute Seasonal Sales Associate for Gilberto Marquez
[2022-10-13] MEDS: HYDROcodone-acetaminophen 5-325 mg Tablet PO ×4 (02:38→19:49)
[2022-10-13 05:54] VITALS: BP 142/88; PULSE 88; TEMP 36.7; O2SAT 99
[2022-10-13] MEDS: prenatal vitamin Capsule 1 CAP PO (07:38)
[2022-10-13] MEDS: ferrous sulfate EC 325 mg Tablet PO ×2 (07:39→17:44)
[2022-10-13] MEDS: FUROsemide 40 mg Tablet PO ×2 (09:18→16:20)
[2022-10-13] MEDS: NIFEdipine ER (24 hr) 30 mg Tablet PO (09:18)
[2022-10-13] MEDS: ibuprofen 800 mg tablet PO ×3 (09:18→20:36)
[2022-10-13] MEDS: docusate sodium 100 mg Capsule PO ×2 (09:18→17:44)
[2022-10-13 09:20] VITALS: BP 158/103; PULSE 100; RESP 16; TEMP 36.8; O2SAT 98
--- NOTE | 2022-10-13 15:40 | P.PN_ITS ---
Vitals/I&O/Wt Last Vital Signs Temp 98.3 F 10/13/22 09:20 Pulse 100 10/13/22 09:20 Resp 16 10/13/22 09:20 BP 158/103 10/13/22 09:20 Pulse Ox 98 10/13/22 09:20 O2 Del Method 10/13/22 05:54 Physical Exam Narrative: The patient is doing well this morning. She has been ambulating, urinating without issue and tolerating a regular diet. The baby is having feeding issues and the patient is requesting to stay one additional day. she has had some swelling and her feet are painful. She is bottle feeding. blood pressures have also been slightly elevated. Const: COMMON NORMALS: no acute distress, patient oriented x3, no limitations, healthy appearing, alert and well nourished GENERAL APPEARANCE: cooperative, comfortable, well kempt and well developed ORIENTATION/CONSCIOUSNESS: Yes awake, Yes oriented to person, Yes oriented to place and Yes oriented to time Resp: COMMON NORMALS: normal respiratory effort EFFORT & INSPECTION: Yes able to speak in complete sentences GI: COMMON NORMALS: Soft to palpation and non-tender PALPATION: Yes Soft to palpation Extremity: COMMON NORMALS: no calf tenderness Neuro: COMMON NORMALS: patient oriented x3 SENSORIUM/ORIENTATION: Yes alert, Yes oriented to person, Yes oriented to place and Yes oriented to time Psych: APPEARANCE: Yes well kempt Skin: WOUNDS: Yes surgical site (clean/dry/intact) Urinary Catheter Management: Conway: Cath Placed During This Visit: yes, but has since been removed by the nurse Reason for Continuing Indwelling Catheter: Decision to DC Catheter Urinary Catheter Date of Insertion: 10/10/22 Urinary Catheter Time of Insertion: 12:35 Date Urinary Catheter Removed: 10/12/22 Time Urinary Catheter Discontinued: 08:00 Data 10/11/22 21:55 10/10/22 11:40 A&P Assessment and plan (1) Preeclampsia complicating hypertension: start lasix 40 mg bid change from procardia 10 mg every 4 hours to procardia ER 30 mg daily. The patient still has hypertension encourage ambulation medication scripts sent to pharmacy today as they close early tomorrow plan for discharge tomorrow Attestations Medical Necessity Statement*: She has already been here two midnights Coding Level of Care Code Acute Refrigeration Person for g Fwd Diagnoses Preeclampsia complicating hypertension O11.9
[2022-10-13 16:14] VITALS: BP 138/91; PULSE 72; RESP 16; TEMP 36.7; O2SAT 99
[2022-10-13 20:52] VITALS: BP 135/90; PULSE 74; RESP 17; TEMP 36.6; O2SAT 99
[2022-10-14 04:50] VITALS: BP 152/89; PULSE 74; RESP 16; TEMP 36.6
[2022-10-14] MEDS: HYDROcodone-acetaminophen 5-325 mg Tablet PO ×2 (04:59→09:00)
[2022-10-14 05:55] VITALS: BP 142/85; RESP 17
[2022-10-14] MEDS: ferrous sulfate EC 325 mg Tablet PO (08:54)
[2022-10-14] MEDS: docusate sodium 100 mg Capsule PO (08:54)
[2022-10-14] MEDS: prenatal vitamin Capsule 1 CAP PO (08:54)
[2022-10-14] MEDS: NIFEdipine ER (24 hr) 30 mg Tablet PO (08:55)
[2022-10-14] MEDS: FUROsemide 40 mg Tablet PO (08:55)
[2022-10-14] MEDS: ibuprofen 800 mg tablet PO (08:55)
--- NOTE | 2022-10-14 09:29 | P.DS_ITS ---
Discharge Providers OCEANOGRAPHER GEOLOGICAL Date of Admission: 10/10/22 11:55 Date of Discharge: 10/14/22 Attending Provider at Admission: Wyatt John MD Attending Provider at Discharge: Wyatt John MD Primary OCEANOGRAPHER GEOLOGICAL: Dr. Hays Primary Care Provider: DYLAN Licea Diagnoses at Discharge Discharge Diagnosis (1) Preeclampsia complicating hypertension: Status: Acute Reason for Visit Reason for Visit: Steroid Injection Hospital Course Hospital Course 27yo C. female WANG 11/12/22 admitted for PIH at 35.2 wk IUP with PIH and delivered by C/S. Pt reported increased BP reading from home and HAs with swelling of hands, leg,feet and Abdomen pain. Pt doing well, with MCCLURE last night, was medicated with Ibuprofen. Pt denies visual changes or Abdomen pain. She is tolerating regular diet, ambulating and passing flatus. Pt is ready for discharge and expectations reviewed. Information Peripartum Data: Infant Delivery Method: Physical Exam Const: COMMON NORMALS: no acute distress, patient oriented x3, healthy appearing, alert and well nourished Resp: COMMON NORMALS: normal respiratory effort and clear to auscultation bilaterally AUSCULTATION: clear to auscultation bilaterally Cardio: COMMON NORMALS: regular rate and regular rhythm RATE: regular rate RHYTHM: regular rhythm GI: COMMON NORMALS: Normal to inspection, nondistended, normoactive bowel sounds present and Soft to palpation PALPATION: Yes Soft to palpation OTHER: moderate size bruising above incision, soft,no palpation of hematoma, no incisio al drainage, or increase warmth. Extremity: GENERAL: Yes edema OTHER: neg Homans sign, DRT +2 bilat lower ext. Neuro: COMMON NORMALS: patient oriented x3 SENSORIUM/ORIENTATION: Yes alert Urinary Catheter Management: Conway: Cath Placed During This Visit: yes, but has since been removed by the nurse Reason for Continuing Indwelling Catheter: Decision to DC Catheter Urinary Catheter Date of Insertion: 10/10/22 Urinary Catheter Time of Insertion: 12:35 Date Urinary Catheter Removed: 10/12/22 Time Urinary Catheter Discontinued: 08:00 History History History 3 Term 1 0 Miscarriages/Ectopic 1 Living Children 1 Discharge Data Studies Completed and Pending Completed Studies During Hospitalization Category Date Time Status Pathology: Surgical [PTH] Routine Pth 10/11/22 10:47 Completed Laboratory Results WBC 18.3 10^3/uL (4.0-10.0) H 10/11/22 21:55 RBC 3.40 10^6/uL (4.1-5.3) L 10/11/22 21:55 Hgb 9.1 g/dL (11.5-15.3) L 10/11/22 21:55 Hct 28.8 % (37.0-47.0) L 10/11/22 21:55 MCV 84.7 fl (81-99) 10/11/22 21:55 MCH 26.8 pg (28.0-34.0) L 10/11/22 21:55 MCHC 31.6 g/dL (30.0-36.0) 10/11/22 21:55 RDW 15.1 % (12.1-15.1) 10/11/22 21:55 Plt Count 280 10^3/cmm (130-400) 10/11/22 21:55 MPV 11.4 fL (7.4-10.4) H 10/11/22 21:55 Neut % (Auto) 84.3 % 10/10/22 11:40 Lymph % (Auto) 10.8 % 10/10/22 11:40 [place] % (Auto) 3.5 % 10/10/22 11:40 Eos % (Auto) 0.5 % 10/10/22 11:40 Baso % (Auto) 0.2 % 10/10/22 11:40 Neut # (Auto) 14.67 10^3/uL (1.8-7.7) H 10/10/22 11:40 Lymph # (Auto) 1.9 10^3/uL (0.8-4.8) 10/10/22 11:40 [place] # (Auto) 0.6 10^3/uL (0.2-0.9) 10/10/22 11:40 Eos # (Auto) 0.1 10^3/uL (0.0-0.8) 10/10/22 11:40 Baso # (Auto) 0.0 10^3/uL (0.0-0.1) 10/10/22 11:40 Nucleated RBC % (auto) 0 % 10/10/22 11:40 Nucleated RBCs # 0.0 /100WBC 10/10/22 11:40 Sodium 135 mmol/L (136-145) L 10/10/22 11:40 Potassium 4.2 mmol/L (3.5-5.1) 10/10/22 11:40 Chloride 102 mmol/L (98-107) 10/10/22 11:40 Carbon Dioxide 23 mmol/L (22-29) 10/10/22 11:40 Anion Gap 14.2 (5-19) 10/10/22 11:40 BUN 5 mg/dL (6-20) L 10/10/22 11:40 Creatinine 0.5 mg/dL (0.5-0.9) 10/10/22 11:40 GFR Calculation 148.0 mL/min (90-130) H 10/10/22 11:40 Glucose 87 mg/dL (65-115) 10/10/22 11:40 Calculated Osmolality 277 mOsm/kg (285-295) L 10/10/22 11:40 Calcium 8.9 mg/dL (8.5-10.5) 10/10/22 11:40 Magnesium 4.6 mg/dL (5.0-7.5) L* 10/10/22 17:15 Urine Total Volume 1100 mL 10/10/22 07:00 Ur Total Protein 24 Hr 641.3 mg/24hr (0-150) H 10/10/22 07:00 Urine Total Protein 58.3 mg/dL (0-150) 10/10/22 07:00 Procedures Performed C/S Vitals Last Vital Signs Temp 98 F 10/14/22 04:50 Pulse 74 10/14/22 04:50 Resp 17 10/14/22 05:55 BP 142/85 10/14/22 05:55 Pulse Ox 99 10/13/22 20:52 O2 Del Method 10/13/22 20:52 Discharge Plan Discharge Patient Disposition: Home Condition: Stable Prescriptions: New docusate sodium 100 mg Capsule 100 mg PO BID Qty: 60 1RF ferrous sulfate 325 mg (65 mg iron) Tablet,Delayed Release (Dr/Ec) 325 mg PO BIDWM Qty: 60 2RF furosemide 40 mg Tablet 40 mg PO BID@08,16 Qty: 11 0RF ibuprofen 800 mg Tablet 800 mg PO TID Qty: 30 0RF hydrocodone-acetaminophen 5-325 mg Tablet 1 tab PO Q4H PRN (Reason: Moderate To Severe Pain) Qty: 30 0RF nifedipine 30 mg tablet extended release 24hr 30 mg PO DAILY Qty: 30 2RF Continued Zyrtec 10 mg capsule 10 mg PO DAILY PRN (Reason: Congestion) DHA 200 mg capsule 200 mg PO DAILY fluoxetine [Prozac] 20 mg capsule 20 mg PO DAILY Qty: 90 0RF Rx Instructions: Pt will need an appt for more refills buspirone 10 mg tablet See Rx Instructions .ROUTE .COMPLEX Qty: 180 0RF Dose Instruction: TAKE 1 TABLET BY MOUTH TWICE A DAY NEEDED FOR ANXIETY Rx Instructions: TAKE 1 TABLET BY MOUTH TWICE A DAY NEEDED FOR ANXIETY (DME) blood-glucose meter [Blood Glucose Monitoring] Kit See Rx Instructions .Route Qty: 1 0RF Rx Instructions: As directed Discharge Diet: Regular Discharge Activity: Increase activity as tolerated and Limit activity as instructed Patient Instructions: Depression (DC), Bleeding (DC), Preeclampsia and Eclampsia After Delivery (GEN), OB C, OB Discharge Report, OB Anesthesia Instructions, OB Food/Drug Interaction Guide, Opioid Safety, OB Home Care, OB Proud Parent Packet Activity Restrictions/Additional Instructions: Pelvic rest x 6 wks. Shower only x 6 wks. Assessment: 1. 35.2 wk IUP- Delivered d/t Severe PIH 2. S/P C/S 3. GDM 4. Hx of Anxiety/Depression 5. Asymptomatic Anemia Plan of Treatment: 1. DC to home 2. F/U [address] Hays 3. Continue Nifedipine 30mg q day 4. Continue home meds Discharge Attestations OCEANOGRAPHER GEOLOGICAL Time Spent in Discharge Care*: less than 30 min Coding Level of Care Code Acute Supervisor Production Department for g Fwd Diagnoses Preeclampsia complicating hypertension O11.9
[2022-10-14 12:02] VITALS: BP 145/95; PULSE 82; RESP 16; TEMP 36.9; O2SAT 99
--- NOTE | 2022-11-05 10:19 | P.OP_ITS ---
Operative Report Date of procedure: October 05, 2022 Pre-op diagnosis: Preop Diagnosis IUP at 35 weeks preeclampsia with severe features intolerance of labor desires permanent sterilization IUP Post-op diagnosis: same as above s/p primary low-transverse and bilateral partial salpingectomy Post-op findings: vigorous viable Procedure done: low-transverse bilateral partial salpingectomy Specimens removed/disposition: bilateral fallopian tube segments Surgeon: Dr. John Estimated blood loss: 500 cc Complications: none Procedure: patient taken to OR. Epidural and Conway catheter already in place. The abdomen was prepped and draped in the usual fashion. A pfannenstiel incision was made and carried down through skin, subcutaneous tissue and fascia. The fascia was from the underlying rectus muscles. The peritoneum was entered bluntly. A bladder flap was created. A low transverse uterine incision was made and extended laterally. Clear amniotic fluid was seen. The baby was delivered in cephalic presentation atraumatically. The placenta was removed intact. The uterine incision was then closed with a continuous interlocking stitch of O-chromic. No bleeding was seen. Bilateral partial salpingectomy was then performed. Specimens sent to pathology. The fasica was closed with O-Vi cryl. Skin was closed with subcuticular stitch of 3-O plain.
== END 2022-10-14 11:45 | disposition home or self-care (01) | DRG 785 ==
LOC: OPOB 10-11 10:41
PROVIDERS: Admitting Provider Obstetrics & Gynecology; PCP Registered Nurse; Visit Provider Obstetrics & Gynecology
PROC: 10D00Z1 Extraction of Products of Conception, Low, Open Approach (ICD-10-PCS; CPT 59514; principal; 2022-10-11 07:00)
DX: O14.14 Severe pre-eclampsia complicating childbirth (principal); Z3A.35 35 weeks gestation of pregnancy; Z37.0 Single live birth; O24.429 Gestational diabetes mellitus in childbirth, unspecified control; O99.02 Anemia complicating childbirth; D64.9 Anemia, unspecified; O99.344 Other mental disorders complicating childbirth; O99.214 Obesity complicating childbirth; E66.01 Morbid (severe) obesity due to excess calories; O76 Abnormality in fetal heart rate and rhythm complicating labor and delivery; F41.1 Generalized anxiety disorder; F32.A Depression, unspecified
CPT/HCPCS: 12345; 36415; 51702; 59025; 59409; 80048; 83735; 84156; 85025; 85027; 88302; 96372; 96374; 96376; 99211; J0690; J1100; J1885; J2250; J2274; J2405; J2590; J2765; J2795; J3010; J3475; J3490; J7030; J7120; J7121

== ENCOUNTER → 2022-11-30 08:52 | Outpatient (BNVA) | payer OTHER, BC, MEDICAID, SELFPAY | PROVIDERS: PCP Registered Nurse; Visit Provider Registered Nurse | DX: O24.419 Gestational diabetes mellitus in pregnancy, unspecified control (principal) | CPT/HCPCS: 83036 ==

== ENCOUNTER 2023-03-23 15:53 | Emergency (ER) | payer OTHER, BC, MEDICAID, SELFPAY ==
[2023-03-23 16:15] VITALS: BP 129/85; PULSE 106; RESP 16; TEMP 37.4; O2SAT 100; BMI 44.3
--- NOTE | 2023-03-23 18:50 | XRR_ITS ---
PROCEDURE INFORMATION: Exam: XR Chest Exam date and time: 03/23/2023 7:01 PM Age: 28 years old Clinical indication: Fever; Additional info: Fever, cough TECHNIQUE: Imaging protocol: Radiologic exam of the chest. Views: 1 view. COMPARISON: MR shoulder LT wo con* [id number] 12/27/2016 10:26 AM FINDINGS: Lungs: No consolidation. Pleural spaces: No pleural effusion. No pneumothorax. Heart/Mediastinum: No cardiomegaly. Bones/joints: Unremarkable. XR/XR chest 1V portable [id number] IMPRESSION: No acute abnormality demonstrated.
--- NOTE | 2023-03-23 18:55 | ED_ITS ---
HPI - General Adult General: Chief complaint: General Medical Stated complaint: Fever, N/V/D Time Seen by Provider: 03/23/23 18:33 History of Present Illness: Patient is a 28-year-old female comes to the ED with fever and upper respiratory symptoms. Symptoms started approximately 5 days ago. She reports having nasal drainage and congestion, fevers, sore throat, left ear pain, cough, chills, body aches. Patient was initially diagnosed with strep was put on Augmentin. She was not getting any better and saw urgent care today and they diagnosed her with strep pharyngitis and told her to stop taking Augmentin and put her on Keflex. She has not started taking her Keflex yet. She also endorses some nausea and had 1 episode of emesis. Associated symptoms: Reports nausea and vomiting; Deny chest pain, dyspnea, headache(s), rash or palpitations Review of Systems Const: Reports: fever(s), chills and body aches; Denies: fatigue Eyes: Denies: change in vision or eye discomfort ENMT: Reports: throat pain, ear or mastoid pain, nasal discharge and nasal congestion; Denies: odynophagia Card: Denies: chest pain, palpitations, edema, swelling of feet/ankles, dyspnea on exertion or orthopnea Resp: Denies: dyspnea, productive cough or non-productive cough GI: Reports: nausea and vomiting; Denies: abdominal pain, diarrhea, constipation or hematochezia : Denies: flank pain, dysuria or hematuria Musc: Denies: neck pain, back pain or extremity swelling Skin/Breast: Denies: rash or new lesions Neuro: Denies: headache(s), numbness in extremities or weakness in extremities PFS ED PFSH: Medical History Generalized anxiety disorder Gestational diabetes History of shoulder dystocia No pertinent past medical history Denies diabetes, asthma, hypertension, seizures, DVT/PE PCP: DYLAN Licea Preeclampsia complicating hypertension Supervision of normal Surgical History History of vacuum extraction assisted delivery Hx of tonsillectomy (~1999) Family History Family/Other Adopted Patient was adopted and does not know her biological family history Social History Substance/Drug Use: never Do you think of yourself as: Straight/Heterosexual Physical Exam Const: COMMON NORMALS: patient oriented x3 and alert HENMT: COMMON NORMALS: normocephalic and EAC's normal HEAD & SCALP: normocephalic EXTERNAL AUDITORY CANAL: EAC's normal TYMPANIC MEMBRANE: TM abnormal TM laterality: bilateral with fluid behind the TM MOUTH: Normal oral and palatal mucosa present THROAT: uvula midline and posterior oropharynx abnormal erythema and exudates Neck/C-Spine: COMMON NORMALS: supple GENERAL: Yes normal visual inspection Resp: COMMON NORMALS: normal respiratory effort, No retractions, No use of accessory muscles and clear to auscultation bilaterally AUSCULTATION: clear to auscultation bilaterally Cardio: COMMON NORMALS: regular rate, regular rhythm, S1 normal heart sound present, S2 normal heart sound present, No gallops present (Cardio), No clicks present (Cardio), No murmurs present (Cardio) and Peripheral pulses 2+ throughout RATE: regular rate RHYTHM: regular rhythm HEART SOUNDS: S1 normal heart sound present and S2 normal heart sound present PERIPHERAL PULSES: Peripheral pulses 2+ throughout GI: COMMON NORMALS: Normal to inspection, nondistended, normoactive bowel tulio nds present, Soft to palpation, non-tender and no masses PALPATION: Yes Soft to palpation : COMMON NORMALS: Yes no CVA tenderness BLADDER/KIDNEY EXAM: Yes no CVA tenderness Back/Pelvis: COMMON NORMALS: no CVA tenderness Extremity: COMMON NORMALS: normal to inspection Neuro: COMMON NORMALS: patient oriented x3 SENSORIUM/ORIENTATION: Yes alert GAIT: Yes Normal gait present Skin: GENERAL SKIN EXAM: dry skin Course Vital Signs: Vital signs: Vital Signs Temperature 99.4 F 03/23/23 16:15 Pulse Rate 106 H 03/23/23 16:15 Respiratory Rate 16 03/23/23 16:15 Blood Pressure 129/85 03/23/23 16:15 Pulse Oximetry 100 03/23/23 16:15 Oxygen Delivery Me thod Room Air 03/23/23 16:15 [facility] - General Adult Medical Decision Making Patient is a 28-year-old female comes to the ED with fever and upper respiratory symptoms. Symptoms started approximately 5 days ago. She reports having nasal drainage and congestion, fevers, sore throat, left ear pain, cough, chills, body aches. Patient was initially diagnosed with strep was put on Augmentin. She was not getting any better and saw urgent care today and they diagnosed her with strep pharyngitis and told her to stop taking Augmentin and put her on Keflex. She has not started taking her Keflex yet. She also endorses some nausea and had 1 episode of emesis. Vitals are stable. Patient appears nontoxic in no acute distress or pain. Patient has posterior oropharynx erythema and exudates. She has fluid behind TMs bilaterally. Rest of exam is benign. White blood cell count of 13.7. Potassium was 3.0 and the rest of labs are unremarkable. Chest x-ray shows no acute findings. Monotest was negative. Patient was diagnosed with strep pharyngitis, upper respiratory viral infection and hypokalemia. She was given a dose of p.o. potassium chloride, IM Rocephin and IM Decadron. She was stable for discharge home and sent home with a prescription for Medrol Dosepak and told to continue taking her previously prescribed Keflex prescription. Return to ED precautions given. Patient understood and agreed with plan. Lab Data I reviewed the patient's lab results. 03/23/23 19:30 03/23/23 19: Radiology Impressions Chest X-Ray 03/23/23 18:50 IMPRESSION: No acute abnormality demonstrated. Laboratory Results WBC 13.7 10^3/uL (4.0-10.0) H 03/23/23: RBC 4.46 10^6/uL (4.1-5.3) 03/23/23 19: Hgb 10.7 g/dL (11.5-15.3) L 03/23/23: Hct 34.2 % (37.0-47.0) L 03/23/23: MCV 76.7 fl (81-99) L 03/23/23: MCH 24.0 pg (28.0-34.0) L 03/23/23: MCHC 31.3 g/dL (30.0-36.0) 03/23/23 RDW 16.2 % (12.1-15.1) H 03/23/23 19:30 Plt Count 363 10^3/cmm (130-400) 03/23/23 19: MPV 10.7 fL (7.4-10.4) H 03/23/23 19:30 Neut % (Auto) 73.7 % 03/23/23 19:30 Lymph % (Auto) 15.7 % 03/23/23 19:30 [place] % (Auto) 8.1 % 03/23/23 19: Eos % (Auto) 1.8 % 03/23/23 19:30 Baso % (Auto) 0.4 % 03/23/23: Neut # (Auto) 10.11 10^3/uL (1.8-7.7) H 03/23/23 19: Lymph # (Auto) 2.2 10^3/uL (0.8-4.8) 03/23/23 19: [place] # (Auto) 1.1 10^3/uL (0.2-0.9) H 03/23/23 19: Eos # (Auto) 0.2 10^3/uL (0.0-0.8) 03/23/23: Baso # (Auto) 0.1 10^3/uL (0.0-0.1) 03/23/23: Nucleated RBC % (auto) 0 % 03/23/23: Nucleated RBCs # 0.0 /100WBC 03/23/23: Sodium 138 mmol/L (136-145) 03/23/23: Potassium 3.0 mmol/L (3.5-5.1) L 03/23/23 19: Chloride 100 mmol/L (98-107) 03/23/23 19: Carbon Dioxide 21 mmol/L (22-29) L 03/23/23 19: Anion Gap 20.0 (5-19) H 03/23/23 19:30 BUN 6 mg/dL (6-20) 03/23/23 19:30 Creatinine 0.5 mg/dL (0.5-0.9) 03/23/23 19: GFR Calculation 146.9 mL/min (90-130) H 03/23/23 19:30 Glucose 79 mg/dL (65-115) 03/23/23 19:30 Calculated Osmolality 283 mOsm/kg (285-295) L 03/23/23 19: Calcium 8.3 mg/dL (8.5-10.5) L 03/23/23 19:30 Total Bilirubin 0.4 mg/dL (0.15-1.2) 03/23/23 19:30 AST 23 U/L (0-32) 03/23/23 19:30 ALT 29 U/L (0-33) 03/23/23 19:30 Alkaline Phosphatase 136 U/L (35-105) H 03/23/23 19: Total Protein 7.8 g/dL (6.6-8.7) 03/23/23 19: Albumin 3.9 g/dL (3.5-5.2) 03/23/23 19: Globulin 3.9 g/dL (1.3-4.6) 03/23/23 19:30 HCG, Qual Negative (Negative) 03/23/23 19:30 Monoscreen Negative (Negative) 03/23/23 19:30 Discharge Plan Discharge Patient Disposition: Home Clinical Impression: Strep pharyngitis, Upper respiratory infection, viral, Hypokalemia Condition: Stable Prescriptions: New methylprednisolone 4 mg tablets,dose pack See Rx Instructions .ROUTE .COMPLEX Qty: 21 0RF Rx Instructions: orally per package directions No Action Zyrtec 10 mg capsule 10 mg PO DAILY PRN (Reason: Congestion) clonazepam [Klonopin] 0.5 mg tablet 0.5 mg PO DAILY PRN (Reason: anxiety) 30 Days Qty: 30 5RF escitalopram oxalate 20 mg tablet 20 mg PO DAILY 90 Days Qty: 90 3RF buspirone 10 mg tablet 20 mg PO BID Qty: 360 4RF Hold Instructions: Doctor's Order cephalexin 500 mg capsule 500 mg PO BID 10 Days Qty: 20 0RF Discharge Orders: Discharge ED (Routine); Ordered 03/23/23 Ordered By: Marco Banegas Referrals: Carol Johnston FNP [Primary Care Provider] - Discharge Diet: Regular Discharge Activity: Increase activity as tolerated Patient Instructions: Strep Throat (DC), Upper Respiratory Infection (ED) Activity Restrictions/Additional Instructions: Follow-up with medical provider as directed in the next 3-5 days for reevaluat ion. Have your primary care doctor recheck your potassium levels as well at your next scheduled appointment. Take medications as prescribed. Make sure you drink plenty of fluids and stay hydrated. Take gtxs-ofa-tdyitha 800 mg of ibuprofen every 8 hours and you can take Tylenol per bottle instructions in between your ibuprofen doses. Return to the ER or your medical provider if condition worsens. Please read and understand discharge instructions. Thank you for choosing [facility] for your healthcare needs today. Please realize this is an emergency room and that we are providing you with a medical screening exam and this may not be complete and all inclusive of all the testing and or work up that you may need to determine your ailment or severity of your illness. It is very important that you follow up as instructed or that you return to the Emergency Department should you have concerns or if your condition changes or worsens in any way. Coding Level of Care Code ED Motorcycle Sales Associate for Gilberto Marquez
[2023-03-23 19:51] LABS: Basophils # 0.1 10^3/uL (0.0-0.1); Basophils % 0.4 %; Eosinophils # 0.2 10^3/uL (0.0-0.8); Eosinophils % 1.8 %; Hematocrit 34.2 % (37.0-47.0); Hemoglobin 10.7 g/dL (11.5-15.3); Lymphocytes # 2.2 10^3/uL (0.8-4.8); Lymphocytes % 15.7 %; Mean Corpuscular HGB Conc 31.3 g/dL (30.0-36.0); Mean Corpuscular Volume 76.7 fl (81-99); Mean Platelet Volume 10.7 fL (7.4-10.4); Monocytes # 1.1 10^3/uL (0.2-0.9); Monocytes % 8.1 %; Neutrophils # 10.11 10^3/uL (1.8-7.7); Neutrophils % 73.7 %; Nucleated Red Blood Cells % 0 %; Platelet Count 363 10^3/cmm (130-400); Red Blood Count 4.46 10^6/uL (4.1-5.3); Red Cell Distribution Width 16.2 % (12.1-15.1); White Blood Count 13.7 10^3/uL (4.0-10.0)
[2023-03-23 20:33] LABS: Alanine Aminotransferase 29 U/L (0-33); Albumin Level 3.9 g/dL (3.5-5.2); Alkaline Phosphatase 136 U/L (35-105); Aspartate Amino Transferase 23 U/L (0-32); Blood Urea Nitrogen 6 mg/dL (6-20); Calcium 8.3 mg/dL (8.5-10.5); Carbon Dioxide 21 mmol/L (22-29); Chloride 100 mmol/L (98-107); Globulin 3.9 g/dL (1.3-4.6); Glomerular Filtration Rate 146.9 mL/min (90-130); Glucose 79 mg/dL (65-115); Osmolality Calculated 283 mOsm/kg (285-295); Sodium 138 mmol/L (136-145); Total Bilirubin 0.4 mg/dL (0.15-1.2); Total Protein 7.8 g/dL (6.6-8.7)
[2023-03-23 20:43] LABS: HCG, Serum Qual Negative (Negative); Monoscreen Negative (Negative)
[2023-03-23] MEDS: potassium chloride ER 20 mEq Tablet 40 MEQ PO (21:30)
[2023-03-23] MEDS: ondansetron 4 MG Tablet PO (21:30)
[2023-03-23] MEDS: cefTRIAXone 1,000 MG in water for injection-sterile 2.1 ML 1 MG IM (21:32)
[2023-03-23] MEDS: dexamethasone 10 mg/mL INJ IM (21:32)
== END 2023-03-23 21:43 | disposition home or self-care (01) ==
PROVIDERS: Emergency Provider Physician Assistant; PCP Registered Nurse
DX: J02.0 Streptococcal pharyngitis (principal); J06.9 Acute upper respiratory infection, unspecified; E87.6 Hypokalemia
CPT/HCPCS: 36415; 71045; 80053; 84703; 85025; 86308; 96372; 99284; J0696; J1100; Q0162

== ENCOUNTER 2023-03-31 21:42 | Emergency (ER) | payer OTHER, BC, MEDICAID, SELFPAY ==
[2023-03-31 22:10] VITALS: BP 127/85; PULSE 96; RESP 18; TEMP 36.7; O2SAT 99; BMI 43.9
[2023-03-31 22:13] VITALS: PULSE 90; RESP 16; O2SAT 100
[2023-03-31 22:57] LABS: Hematocrit 37.8 % (37.0-47.0); Hemoglobin 11.5 g/dL (11.5-15.3); Mean Corpuscular HGB Conc 30.4 g/dL (30.0-36.0); Mean Corpuscular Hemoglobin 23.9 pg (28.0-34.0); Mean Corpuscular Volume 78.4 fl (81-99); Mean Platelet Volume 9.2 fL (7.4-10.4); Platelet Count 435 10^3/cmm (130-400); Red Blood Count 4.82 10^6/uL (4.1-5.3); Red Cell Distribution Width 17.2 % (12.1-15.1); White Blood Count 18.1 10^3/uL (4.0-10.0)
[2023-03-31 23:17] LABS: Alanine Aminotransferase 17 U/L (0-33); Albumin Level 3.8 g/dL (3.5-5.2); Alkaline Phosphatase 125 U/L (35-105); Anion Gap 14.9 (5-19); Aspartate Amino Transferase 12 U/L (0-32); Blood Urea Nitrogen 14 mg/dL (6-20); Calcium 8.7 mg/dL (8.5-10.5); Carbon Dioxide 26 mmol/L (22-29); Chloride 101 mmol/L (98-107); Globulin 3.6 g/dL (1.3-4.6); Glomerular Filtration Rate 85.4 mL/min (90-130); Glucose 91 mg/dL (65-115); Osmolality Calculated 286 mOsm/kg (285-295); Potassium 3.9 mmol/L (3.5-5.1); Sodium 138 mmol/L (136-145); Total Bilirubin 0.2 mg/dL (0.15-1.2); Total Protein 7.4 g/dL (6.6-8.7)
--- NOTE | 2023-03-31 23:36 | ED_ITS ---
HPI - General Adult General: Chief complaint: General Medical Stated complaint: body aches Time Seen by Provider: 03/31/23 22:41 Source: patient Mode of arrival: ambulatory Limitations: no limitations History of Present Illness: 28-year-old female who was diagnosed with strep recently she was seen here last Sunday given steroid shot Rocephin she has been on antibiotics along with Medrol Dosepak over the last week she is finished them she states that today she has been having generalized body aches. States she is feels sore all over. States her throat feels much improved denies any shortness of breath denies any fever denies any worsening proving factors. Associated symptoms: Deny chest pain, dyspnea, rash or vomiting Review of Systems Const: Reports: body aches; Denies: fever(s) or chills Card: Denies: chest pain Resp: Denies: dyspnea GI: Denies: vomiting : Denies: dysuria Musc: Denies: muscle weakness Skin/Breast: Denies: rash PFSH ED PFSH: Medical History Generalized anxiety disorder Gestational diabetes History of shoulder dystocia No pertinent past medical history Denies diabetes, asthma, hypertension, seizures, DVT/PE PCP: Carol Johnston, MAILING SPECIALIST Preeclampsia complicating hypertension Supervision of normal Surgical History History of vacuum extraction assisted delivery Hx of tonsillectomy (~1999) Family History Family/Other Adopted Patient was adopted and does not know her biological family history Social History Substance/Drug Use: never Do you think of yourself as: Straight/Heterosexual Physical Exam Const: COMMON NORMALS: no acute distress and patient oriented x3 HENMT: COMMON NORMALS: normocephalic and atraumatic HEAD & SCALP: normocephalic and atraumatic THROAT: posterior oropharynx normal Eye: COMMON NORMALS: conjunctivae normal CONJUNCTIVA: Yes conjunctivae normal Neck/C-Spine: COMMON NORMALS: supple Chest: COMMONS NORMALS: normal inspection of the chest and normal palpation of entire chest wall Resp: COMMON NORMALS: normal respiratory effort Cardio: COMMON NORMALS: regular rate, regular rhythm and No murmurs present (Cardio) RATE: regular rate RHYTHM: regular rhythm GI: INSPECTION: Yes normal to inspection Extremity: COMMON NORMALS: normal to inspection and full ROM Neuro: COMMON NORMALS: patient oriented x3, moves all extremities and no focal motor deficits Psych: COMMON NORMALS: mental status grossly normal, Normal thought process present and cooperative THOUGHT PROCESS: Normal thought process present Skin: COMMON NORMALS: no rashes or lesions noted and no wounds GENERAL SKIN EXAM: no rashes or lesions noted Course Vital Signs: Vital signs: Vital Signs Temperature 98.1 F 03/31/23 22:10 Pulse Rate 96 03/31/23 22:10 Respiratory Rate 18 03/31/23 22:10 Blood Pressure 127/85 03/31/23 22:10 Pulse Oximetry 99 03/31/23 22:10 MDM - General Adult Medical Decision Making Patient presents with generalized body aches she is just getting over strep throat she had started on Keflex and steroids last week she had given IM steroids here along with a Medrol Dosepak that she just finished she does have a white count of 18 is likely from the steroids. Her electrolytes here are all normal her exam is benign throat is clear she is afebrile vitals are normal we will place her on Naprosyn and give her a shot of Toradol here she is stable for discharge. Medical Records I reviewed the patient's medical records. Lab Data I reviewed the patient's lab results. 03/31/23 22:50 03/31/23 22:50 Laboratory Results WBC 18.1 10^3/uL (4.0-10.0) H 03/31/23 22:50 RBC 4.82 10^6/uL (4.1-5.3) 03/31/23 22:50 Hgb 11.5 g/dL (11.5-15.3) 03/31/23 22:50 Hct 37.8 % (37.0-47.0) 03/31/23 22:50 MCV 78.4 fl (81-99) L 03/31/23 22:50 MCH 23.9 pg (28.0-34.0) L 03/31/23 22:50 MCHC 30.4 g/dL (30.0-36.0) 03/31/23 22:50 RDW 17.2 % (12.1-15.1) H 03/31/23 22:50 Plt Count 435 10^3/cmm (130-400) H 03/31/23 22:50 MPV 9.2 fL (7.4-10.4) 03/31/23 22:50 Lymph % (Auto) Not Reportable 03/31/23 22:50 [place] % (Auto) Not Reportable 03/31/23 22:50 Lymph # (Auto) Not Reportable 03/31/23 22:50 [place] # (Auto) Not Reportable 03/31/23 22:50 Sodium 138 mmol/L (136-145) 03/31/23 22:50 Potassium 3.9 mmol/L (3.5-5.1) 03/31/23 22:50 Chloride 101 mmol/L (98-107) 03/31/23 22:50 Carbon Dioxide 26 mmol/L (22-29) 03/31/23 22:50 Anion Gap 14.9 (5-19) 03/31/23 22:50 BUN 14 mg/dL (6-20) 03/31/23 22:50 Creatinine 0.8 mg/dL (0.5-0.9) 03/31/23 22:50 GFR Calculation 85.4 mL/min (90-130) L 03/31/23 22:50 Glucose 91 mg/dL (65-115) 03/31/23 22:50 Calculated Osmolality 286 mOsm/kg (285-295) 03/31/23 22:50 Calcium 8.7 mg/dL (8.5-10.5) 03/31/23 22:50 Total Bilirubin 0.2 mg/dL (0.15-1.2) 03/31/23 22:50 AST 12 U/L (0-32) 03/31/23 22:50 ALT 17 U/L (0-33) 03/31/23 22:50 Alkaline Phosphatase 125 U/L (35-105) H 03/31/23 22:50 Total Protein 7.4 g/dL (6.6-8.7) 03/31/23 22:50 Albumin 3.8 g/dL (3.5-5.2) 03/31/23 22:50 Globulin 3.6 g/dL (1.3-4.6) 03/31/23 22:50 Discharge Plan Discharge Patient Disposition: Home Clinical Impression: Generalized body aches Condition: Stable Prescriptions: New Naprosyn 500 mg tablet 500 mg PO BID PRN (Reason: pain) Qty: 20 0RF No Action Zyrtec 10 mg capsule 10 mg PO DAILY PRN (Reason: Congestion) clonazepam [Klonopin] 0.5 mg tablet 0.5 mg PO DAILY PRN (Reason: anxiety) 30 Days Qty: 30 5RF escitalopram oxalate 20 mg tablet 20 mg PO DAILY 90 Days Qty: 90 3RF buspirone 10 mg tablet 20 mg PO BID Qty: 360 4RF Hold Instructions: Doctor's Order cephalexin 500 mg capsule 500 mg PO BID 10 Days Qty: 20 0RF methylprednisolone 4 mg tablets,dose pack See Rx Instructions .ROUTE .COMPLEX Qty: 21 0RF Rx Instructions: orally per package directions Discharge Orders: Discharge ED (Routine); Ordered 03/31/23 Ordered By: Bridger Cerrato Referrals: Carol Johnston FNP [Primary Care Provider] - 1-3 days Discharge Diet: Advance as tolerated Discharge Activity: Resume usual activity Patient Instructions: Myalgia Coding Level of Care Code ED Detailer Furniture for Gilberto Marquez
[2023-03-31] MEDS: ketorolac 60 mg/2 mL INJ IM (23:39)
[2023-03-31 23:51] VITALS: BP 127/91; PULSE 93; RESP 16; O2SAT 100
[2023-04-01 00:02] LABS: Absolute Segmented Neutrophil 12.9 10/cmm (1.6-7.1); Lymphocytes 21 %; Monocytes Absolute 1.1 10^3/cmm (0.1-0.6); Segmented Neutrophils 71 %; Total Cells Counted 100 (0-100)
[2023-04-01 00:03] LABS: Absolute Eosinophils 0.3 10^3/cmm (0.0-0.7); Absolute Neutrophil 12.9 10^3/cmm (1.4-6.5); Eosinophils 2 %; Lymphocytes Absolute 3.8 10^3/cmm (1.2-3.4); Platelet Estimate Increased (Normal)
[2023-04-01 00:06] LABS: Anisocytosis 2+; Microcytosis 1+; Spherocytes 1+
== END 2023-03-31 23:54 | disposition home or self-care (01) ==
PROVIDERS: Emergency Provider Emergency Medicine; PCP Registered Nurse
DX: R52 Pain, unspecified (principal)
CPT/HCPCS: 36415; 80053; 85007; 85025; 96372; 99284; J1885

== ENCOUNTER 2023-07-05 08:27 | Outpatient (CLI) | payer OTHER, BC, MEDICAID, SELFPAY ==
--- NOTE | 2023-07-05 08:47 | MR_ITS ---
WS: [id number] MRI LEFT SHOULDER NONCONTRAST TECHNIQUE: Sagittal T2, coronal T1, T2 and proton density imaging. Axial gradient PDE imaging. CLINICAL INFORMATION: LEFT SHOULDER INSTABILITY COMPARISON: MRI 2017 FINDINGS: Chronic Hill-Sachs deformity. No significant edema. Normal bone marrow signal in the glenoid. Mild do wnsloping acromion. Slight subacromial spurring. Slight impingement distal supraspinatus. Trace subac romial and subdeltoid fluid. Normal supraspinatus and infraspinatus. Normal teres minor. Normal subscapularis. Normal biceps tendo n in the bicipital groove. Biceps labral anchor appears intact. Glenoid labrum appears grossly intact . No other suspicious findings. IMPRESSION: 1. Chronic Hill-Sachs deformity of the humeral head. No edema. No edema in the glenoid. 2. Mild downsloping the acromion with slight subacromial spurring. Rotator cuff is intact. 3. Biceps tendon intact within the bicipital groove. Normal biceps labral anchor. 4. No other suspicious findings.
== END 2023-07-05 08:28 | disposition home or self-care (01) ==
PROVIDERS: PCP Registered Nurse; Visit Provider Nurse Practitioner Family
DX: M25.312 Other instability, left shoulder (principal); M21.822 Other specified acquired deformities of left upper arm
CPT/HCPCS: 73221

== ENCOUNTER 2024-05-09 08:59 | Emergency (ER) | payer OTHER, SELFPAY ==
[2024-05-09 09:18] VITALS: BP 116/78; PULSE 85; RESP 14; TEMP 36.7; O2SAT 99
[2024-05-09 10:23] LABS: Rapid Strep A Test Negative (Negative)
--- NOTE | 2024-05-09 11:22 | W.ED.URI ---
HPI - URI/Sore Throat General: Chief Complaint: Upper Respiratory Infection Stated Complaint: sore thoat, chills, body aches, ear pain Time Seen by Provider: 05/09/24 09:04 Source: patient Mode of arrival: ambulatory Limitations: no limitations History of Present Illness: Patient is a 29-year-old female who presents to the ED today with complaint of sore throat, chills, body aches over the past 4 to 5 days. She states she has a history of strep throat and feels like her symptoms today feel similar. She was seen through a telehealth visit and placed on amoxicillin 1 to 2 days ago but does not feel like she is improving. She has some ear discomfort as well as some sinus pressure. MD elicited complaint: sore throat, nasal congestion, sinus pain and other (ear pain, chills/body aches) Onset (ago): day(s) Consistency: constant Severity: moderate Description of mucous: clear Able to tolerate fluids by mouth: Yes Exacerbating factors: swallowing Relieving factors: nothing Associated symptoms: Reports chills, ear or mastoid pain, fever(s) (subjective) and sinus pain; Deny abdominal pain, chest pain, diarrhea, headache(s) or vomiting Treatments prior to arrival: antibiotics Review of Systems Const: Reports: fever(s) (subjective), chills and body aches Eyes: Denies: change in vision, blurry vision, photophobia or eye discomfort ENMT: Reports: throat pain, odynophagia, ear or mastoid pain and sinus pain; Denies: uvular edema, enlarged tonsils, ear discharge or nasal discharge Card: Denies: chest pain Resp: Denies: dyspnea, productive cough, non-productive cough or chest congestion GI: Denies: abdominal pain, vomiting or diarrhea Musc: Denies: neck pain Neuro: Denies: headache(s) PFSH ED PFSH: Medical History Preeclampsia complicating hypertension Gestational diabetes History of shoulder dystocia Supervision of normal No pertinent past medical history Denies diabetes, asthma, hypertension, seizures, DVT/PE PCP: DYLAN Licea Generalized anxiety disorder Surgical History History of vacuum extraction assisted delivery Hx of tonsillectomy (~1999) Family History Family/Other Adopted Patient was adopted and does not know her biological family history Social History Substance/Drug Use: never Do you think of yourself as: Straight/Heterosexual Female Reproductive History: Date of last menstrual period: 05/02/24 Physical Exam Const: COMMON NORMALS: no acute distress, average body habitus, patient oriented x3, no limitations, healthy appearing, alert and well nourished GENERAL APPEARANCE: cooperative ORIENTATION/CONSCIOUSNESS: Yes awake, Yes oriented to person, Yes oriented to place and Yes oriented to time HENMT: COMMON NORMALS: normocephalic, atraumatic, hearing grossly normal bilaterally, external ears normal, EAC's normal, TM's normal bilaterally, Normal external nose present, Normal nasal mucous membranes and turbinates present, moist oral mucous membranes, dentition normal and gingiva normal HEAD & SCALP: normal to inspection, normocephalic and atraumatic FACE & SINUS: normal facial exam and sinuses nontender NOSE: Normal external nose present and Normal nasal mucous membranes and turbinates present EXTERNAL EAR: Yes external ears normal EXTERNAL AUDITORY CANAL: EAC's normal TYMPANIC MEMBRANE: TM's normal bilaterally MOUTH: Normal oral and palatal mucosa present and lip normal THROAT: posterior oropharynx abnormal (post nasal drainage) erythema and other (s/p tonsillectomy); no uvular edema Eye: COMMON NORMALS: Equal, round and reactive pupils present, EOMs intact bilaterally and conjunctivae normal CONJUNCTIVA: Yes conjunctivae normal PUPIL: Yes Equal, round and reactive pupils present Neck/C-Spine: COMMON NORMALS: no lymphadenopathy Neuro: COMMON NORMALS: patient oriented x3 SENSORIUM/ORIENTATION: Yes alert, Yes oriented to person, Yes oriented to place and Yes oriented to time Course Vital Signs: Vital signs: Vital Signs Temperature 98.1 F 05/09/24 11:44 Pulse Rate 81 05/09/24 11:44 Respiratory Rate 16 05/09/24 11:44 Blood Pressure 118/76 05/09/24 11:44 Pulse Oximetry 100 05/09/24 11:44 MDM - URI/Sore Throat Medical Decision Making Patient was given IM Bicillin as well as IM Dexamethasone. She gargled with viscous lidocaine with fairly good relief of her throat discomfort. She will be provided a prescription for this. Return ED precautions given. Vital signs are stable. I do not feel any further workup from the emergency department is necessary/would be overly beneficial at this time. Medical Records I reviewed the patient's medical records. Lab Data I reviewed the patient's lab results. Laboratory Results Group A Strep Rapid Negative (Negative) 05/09/24 09:57 No radiology studies performed this visit Discharge Plan Discharge Patient Disposition: Home Clinical Impression: Pharyngitis Qualifiers: Pharyngitis/tonsillitis etiology: unspecified etiology Qualified Code(s): J02.9 - Acute pharyngitis, unspecified Condition: Stable Prescriptions: New Lidocaine Viscous 2 % solution 15 ml MUCOUS MEM QID Qty: 100 0RF Rx Instructions: Mix with water and gargle for 1-2 minutes, then spit No Action Zyrtec 10 mg capsule 10 mg PO DAILY PRN (Reason: Congestion) escitalopram oxalate 20 mg tablet 20 mg PO DAILY 90 Days Qty: 90 3RF promethazine-DM 6.25-15 mg/5 mL syrup 10 ml PO Q6H PRN (Reason: cough) Qty: 118 0RF azithromycin [Zithromax] 500 mg tablet 500 mg PO DAILY 5 Days Qty: 5 0RF buspirone 10 mg tablet 20 mg PO BID Qty: 360 4RF Hold Instructions: Doctor's Order clonazepam [Klonopin] 0.5 mg tablet 0.5 mg PO DAILY PRN (Reason: anxiety) 30 Days Qty: 30 5RF Naprosyn 500 mg tablet 500 mg PO BID PRN (Reason: pain) Qty: 20 0RF Discharge Orders: Discharge ED (Routine); Ordered 05/09/24 Ordered By: Aruna Sales Referrals: Carol Johnston FNP [Primary Care Provider] - Patient Instructions: Pharyngitis (ED) Coding Level of Care Code ED Chisel Worker for Gilberto Marquez
[2024-05-09] MEDS: dexamethasone 10 mg/mL INJ 8 MG IM (11:27)
[2024-05-09] MEDS: penicillin g (L-A) 1,200,000 unit/2 mL Syr 1200000 UNIT IM (11:28)
[2024-05-09] MEDS: lidocaine 2% viscous 15 mL UDC MUCOUS MEM (11:28)
[2024-05-09 11:44] VITALS: BP 118/76; PULSE 81; RESP 16; TEMP 36.7; O2SAT 100
== END 2024-05-09 11:42 | disposition home or self-care (01) ==
PROVIDERS: Emergency Provider Physician Assistant; PCP Registered Nurse
DX: J02.9 Acute pharyngitis, unspecified (principal); Z79.899 Other long term (current) drug therapy
CPT/HCPCS: 87081; 87880; 96372; 99284; J0561; J1100

== ENCOUNTER → 2025-05-19 11:27 | Outpatient (BNVA) | payer OTHER, SELFPAY | PROVIDERS: PCP Registered Nurse; Visit Provider Registered Nurse | DX: Z98.84 Bariatric surgery status (principal); R23.3 Spontaneous ecchymoses | CPT/HCPCS: 80053; 82306; 82607; 83550; 85025 ==